=== PATIENT | male | born 1970 | race Caucasian/White ===

== ENCOUNTER 2017-02-11 19:15 | Emergency (ER) | payer OTHER ==
[2017-02-11] MEDS ORDERED: DOXYcycline CAP(*) 100 MG PO ONE (20:40)
--- NOTE | 2017-02-11 20:53 | ED ---
Bite Injury/Animal - HPI Summary HPI Summary: 47M presents with tick bite on left shoulder. He has history of chronic lyme and got the body but did not get the head of the tick. he is not allergic to doxy. some irritation around bite. no fever. tick removed a couple hours ago. the tick was engorged. - History of Current Complaint Chief Complaint: EDRashSkinAbscess Stated Complaint: TICK ON LEFT SHOULDER BLADE Time Seen by Provider: 02/11/17 20:40 Pain Intensity: 2 - Allergies/Home Medications Allergies/Adverse Reactions: Allergies Allergy/AdvReac Type Severity Reaction Status Date / Time No Known Allergies Allergy Verified 08/24/16 11:44 PMH/Surg Hx/FS Hx/Imm Hx Endocrine/Hematology History: Denies: Hx Diabetes, Hx Systemic Lupus Erythematosus, Hx Thyroid Disease Cardiovascular History: Denies: Hx Congestive Heart Failure, Hx Hypertension, Hx Pacemaker/ICD, Other Cardiovascular Problems/Disorders Respiratory History: Reports: Hx Asthma, Other Respiratory Problems/Disorders - recurrernt sinus infections Denies: Hx Chronic Obstructive Pulmonary Disease (COPD) GI History: Reports: Hx Gall Bladder Disease, Other GI Disorders - GALLBLADDER DISEASE, stomach "nerve pain issue" Denies: Hx Ulcer History: Reports: Hx Kidney Stones Denies: Hx Dialysis, Hx Renal Disease Musculoskeletal History: Reports: Other Musculoskeletal History - Right hand surgery Denies: Hx Rheumatoid Arthritis Sensory History: Denies: Hx Contacts or Glasses, Hx Hearing Aid Opthamlomology History: Denies: Hx Contacts or Glasses Neurological History: Reports: Hx Headaches, Hx Migraine, Other Neuro Impairments/Disorders - migranes Psychiatric History: Reports: Hx Depression Denies: Hx Panic Disorder - Cancer History Cancer Type, 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 CARDIAC CATH - NO STENTS. ABDOMINAL NERVE REPAIR SURGERY at [facility] Hx Anesthesia Reactions: No - Immunization History Date of Tetanus Vaccine: UTD Date of Influenza Vaccine: 2012 Immunizations Up to Date: Yes Infectious Disease History: No Infectious Disease History: Reports: History Other Infectious Disease - LYME DISEASE Denies: Hx Hepatitis, Hx Human Immunodeficiency Virus (HIV), Traveled Outside the [place] in Last 30 Days - Family History Known Family History: Positive: Hypertension - Social History Alcohol Use: Occasionally Substance Use Type: Reports: Marijuana Substance Use Comment - Amount & Last Used: daily Smoking Status (MU): Light Every Day Tobacco Smoker Amount Used/How Often: 1/2 PPD Review of Systems Negative: Fever Negative: Chest Pain Negative: Shortness Of Breath Positive: Other - tick bite left shoulder All Other Systems Reviewed And Are Negative: Yes Physical Exam Triage Information Reviewed: Yes Vital Signs On Initial Exam: Initial Vitals Temp Pulse Resp BP Pulse Ox 98.1 F 79 14 167/100 97 02/11/17 19:21 02/11/17 19:21 02/11/17 19:21 02/11/17 19:21 02/11/17 19:21 Vital Signs Reviewed: Yes Appearance: Positive: Well-Appearing Skin: Positive: Warm, Dry, Other - tick head with 2cm surrounding erythema without warmth around area on left shoulder Head/Face: Positive: Normal Head/Face Inspection Eyes: Positive: Normal, Conjunctiva Clear Respiratory/Lung Sounds: Positive: Clear to Auscultation, Breath Sounds Present Cardiovascular: Positive: Normal, RRR Musculoskeletal: Positive: Normal Neurological: Positive: Normal Psychiatric: Positive: Normal - Farrell Coma Scale Coma Scale Total: 15 Diagnostics - Vital Signs Vital Signs Temp Pulse Resp BP Pulse Ox 02/11/17 19:21 98.1 F 79 14 167/100 97 - Laboratory Lab Statement: Any lab studies that have been ordered have been reviewed, and results considered in the medical decision making process. Bite Injury Course/Dx - Course Course Of Treatment: 47M presents with tick bite on left shoulder. He has history of chronic lyme and got the body but did not get the head of the tick. he is not allergic to doxy. some irritation around bite. no fever. tick removed a couple hours ago. the tick was engorged. nurse Gilmer got tick out with needle. gave dose of doxy. patient understand and agrees with plan. - Diagnoses Differential Diagnosis/HQI/PQRI: Positive: Other - tick, lyme Provider Diagnosis: Tick bite Discharge - Discharge Plan Condition: Good Disposition: HOME Patient Education Materials: Tick Bite (ED) Referrals: Roberto Jeffers MD [Primary Care Provider] - Additional Instructions: You have been prophylactically treated for Lyme disease Return to ED if develop any rash or signs of infection
[2017-02-11 21:20] VITALS: BP 151/89
== END 2017-02-11 21:20 | disposition home or self-care (01) ==
LOC: ED 19:15
DX: S40.262A Insect bite (nonvenomous) of left shoulder, initial encounter (principal); W57.XXXA Bitten or stung by nonvenomous insect and other nonvenomous arthropods, initial encounter; Y92.9 Unspecified place or not applicable; F32.9 Major depressive disorder, single episode, unspecified; F17.210 Nicotine dependence, cigarettes, uncomplicated
CPT/HCPCS: 99281; A9270-GY

== ENCOUNTER 2019-12-10 13:56 | Observation (INO) ==
[2019-12-10] MEDS ORDERED: NS 0.9% 1000 ml BAG 1,000 ML IV ONE ×2 (16:30→18:29)
[2019-12-10 16:39] LABS: ABS Basophils 0.1 10^3/ul (0-0.2); ABS Eosinophils 0.3 10^3/ul (0-0.6); ABS Lymphocytes 2.5 10^3/ul (1.0-4.8); ABS Monocytes 0.6 10^3/ul (0-0.8); ABS Neutrophils 6.8 10^3/ul (1.5-7.7); Hematocrit 43 % (42-52); Hemoglobin 14.8 g/dL (14.0-18.0); Lymphocyte % 23.8 %; Mean Corpuscular HGB Conc 34 g/dL (31-36); Mean Corpuscular Hemoglobin 32 pg (27-31); Mean Corpuscular Volume 95 fL (80-94); Mean Platelet Volume 7.4 fL (7.4-10.4); Platelet Count 347 10^3/uL (150-450); Red Blood Count 4.56 10^6 /uL (4.18-5.48); Red Cell Distribution Width 15 % (10-15); White Blood Count 10.3 10^3/uL (3.5-10.8)
[2019-12-10 16:59] LABS: Albumin 4.7 g/dL (3.2-5.2); Albumin/Globulin Ratio 1.5 (1-3); Calcium 9.7 mg/dL (8.6-10.3); EGFR African American 96.1 (>60); EGFR Non-African American 79.4 (>60); Globulin 3.1 g/dL (2-4); Potassium 4.5 mmol/L (3.5-5.0); Total Bilirubin 0.7 mg/dL (0.2-1.0); Total Protein 7.8 g/dL (6.4-8.9)
[2019-12-10 17:00] LABS: INR 1.14 (0.82-1.09)
[2019-12-10] MEDS ORDERED: Ondansetron 4 mg VIAL 2 MG/ML 2 ml VIAL IV ONE (17:20)
[2019-12-10] MEDS ORDERED: Iohexol 300 (CONTRAST) 10 ML SDV IV ONE (17:31)
[2019-12-10] MEDS ORDERED: metroNIDAZOLE IV 500 MG/100ML 500 MG/100 ML BAG IVPB ONE (18:29)
[2019-12-10] MEDS ORDERED: Ciprofloxacin 400mg IVPREMIX 400 MG/200 ML BAG IVPB ONE (18:29)
[2019-12-10 19:56] LABS: C Reactive Protein 11.19 mg/L (<8.01)
[2019-12-10 19:58] LABS: Erythrocyte Sed Rate 5 mm/Hr (0-14)
[2019-12-10] MEDS ORDERED: NS 0.9% 1000 ml BAG 1,000 ML IV SCH (20:00)
[2019-12-10] MEDS ORDERED: Enoxaparin 40 MG/0.4 ML SYR SUBCUT SCH (20:00)
[2019-12-10] MEDS ORDERED: oxyCODONE 5 mg/5 ml ORAL.SOLN UDC PO ONE (20:04)
[2019-12-10] MEDS ORDERED: Nicotine Lozenge mini 2 MG LOZNG.MINI MT PRN (20:48)
[2019-12-10] MEDS: Nicotine PATCH 21 MG/24 HR PATCH TRANSDERM SCH (20:57)
[2019-12-10] MEDS: Ondansetron 4 mg VIAL 2 MG/ML 2 ml VIAL IV PRN (22:48)
[2019-12-10] MEDS: oxyCODONE 5 mg/5 ml ORAL.SOLN UDC PO PRN (22:55)
[2019-12-11] MEDS: oxyCODONE 5 mg/5 ml ORAL.SOLN UDC PO PRN (04:59)
[2019-12-11] MEDS ORDERED: metroNIDAZOLE IV 500 MG/100ML 500 MG/100 ML BAG IVPB SCH (05:00)
[2019-12-11] MEDS: Ondansetron 4 mg VIAL 2 MG/ML 2 ml VIAL IV PRN ×2 (05:42→10:32)
[2019-12-11 06:50] LABS: ABS Eosinophils 0.3 10^3/ul (0-0.6); ABS Lymphocytes 1.8 10^3/ul (1.0-4.8); ABS Monocytes 0.5 10^3/ul (0-0.8); ABS Neutrophils 3.8 10^3/ul (1.5-7.7); Eosinophil % 5.4 %; Hematocrit 36 % (42-52); Hemoglobin 12.5 g/dL (14.0-18.0); Lymphocyte % 27.6 %; Mean Corpuscular HGB Conc 35 g/dL (31-36); Mean Corpuscular Hemoglobin 33 pg (27-31); Mean Corpuscular Volume 94 fL (80-94); Mean Platelet Volume 7.1 fL (7.4-10.4); Nucleated Red Blood Cells % 0.1; Platelet Count 263 10^3/uL (150-450); Red Blood Count 3.83 10^6 /uL (4.18-5.48); Red Cell Distribution Width 14 % (10-15); White Blood Count 6.4 10^3/uL (3.5-10.8)
[2019-12-11 07:12] LABS: BUN/Creatinine Ratio 8.5 (8-20); Calcium 8.7 mg/dL (8.6-10.3); EGFR African American 103.2 (>60); EGFR Non-African American 85.3 (>60); Potassium 4.3 mmol/L (3.5-5.0)
[2019-12-11] MEDS: Nicotine PATCH 21 MG/24 HR PATCH TRANSDERM SCH (07:27)
[2019-12-11 07:42] VITALS: BP 122/77
[2019-12-11] MEDS ORDERED: Nicotine PATCH 21 MG/24 HR PATCH TRANSDERM SCH (08:00)
[2019-12-11] MEDS ORDERED: Ciprofloxacin 400mg IVPREMIX 400 MG/200 ML BAG IVPB SCH (08:00)
== END 2019-12-11 11:40 | disposition home or self-care (01) ==
LOC: ED 13:56 → MED 13:56
PROVIDERS: ADMIT Pediatrics; ATTEND Student in an Organized Health Care Education/Training Program

== ENCOUNTER 2022-08-26 06:21 | Inpatient (IN) ==
[2022-08-26] MEDS ORDERED: Ondansetron 4 mg VIAL 2 MG/ML 2 ml VIAL IV ONE ×2 (06:50→09:20)
[2022-08-26] MEDS ORDERED: Morphine 4 MG/ML VIAL (1 ml) IV ONE (06:54)
[2022-08-26 07:00] LABS: ABS Basophils 0.2 10^3/uL (0.0-0.1); ABS Lymphocytes 1.1 10^3/uL (1.0-4.8); ABS Monocytes 0.5 10^3/uL (0.0-1.1); Eosinophil % 0.1 %; Hematocrit 44.1 % (38-53); Hemoglobin 15.2 g/dL (13.2-16.3); Lymphocyte % 5.8 %; Mean Corpuscular Hgb Conc 34.4 g/dL (31-36); Mean Platelet Volume 7.2 fL (7.5-11.2); Platelet Count 333 10^3/uL (150-450); Red Blood Count 4.74 10^6/uL (4.06-5.63); Red Cell Distribution Width 15.5 % (12-17); White Blood Count 18.7 10^3/uL (3.6-10.2)
[2022-08-26 07:39] LABS: Albumin 4.5 g/dL (3.2-5.2); Albumin/Globulin Ratio 1.3 (1-3); Calcium 9.8 mg/dL (8.6-10.3); Creatinine, Serum 1.18 mg/dL (0.67-1.17); Globulin 3.4 g/dL (2-4); Potassium 4.4 mmol/L (3.5-5.0); Total Bilirubin 0.9 mg/dL (0.2-1.0); Total Protein 7.9 g/dL (6.4-8.9); eGFR CKD-EPI 74.2 (>60)
[2022-08-26] MEDS ORDERED: Iohexol 350 (CONTRAST) 500 ML MDV IV ONE (07:45)
[2022-08-26] MEDS ORDERED: HYDROmorphone 1 MG/1 ML SYRINGE IV SLOW PU ONE ×4 (08:01→20:22)
[2022-08-26] MEDS ORDERED: Lactated Ringers 1000 ml BAG 1,000 ML IV ONE (09:09)
[2022-08-26] MEDS ORDERED: metroNIDAZOLE IV 500 MG/100ML 500 MG/100 ML BAG IVPB ONE (09:11)
[2022-08-26] MEDS ORDERED: Ciprofloxacin 400mg IVPREMIX 400 MG/200 ML BAG IVPB ONE (09:11)
[2022-08-26 09:30] LABS: Activated Partial Thrombo Time 30.7 seconds (26.0-38.0); INR 1.19 (0.88-1.18)
[2022-08-26] MEDS ORDERED: Prochlorperazine 5 mg/ml 2 ml VIAL (10 mg) IV ONE (11:47)
[2022-08-26] MEDS ORDERED: Al Hydrox/Mg Hydrox/Simet LIQ 30 ML UDC PO PRN (13:01)
[2022-08-26] MEDS ORDERED: Lactated Ringers 1000 ml BAG 1,000 ML IV SCH (15:00)
[2022-08-26] MEDS ORDERED: Naloxone Nasal Spray 4 MG/0.1 ML NASAL.SPR INTRANASAL PRN (15:22)
[2022-08-26] MEDS ORDERED: LORazepam ORAL LIQ 2 MG/ML BULK BOTTLE PO PRN (15:22)
[2022-08-26] MEDS ORDERED: Albuterol HFA INHALER 8 gm MDI INH PRN (15:22)
[2022-08-26] MEDS ORDERED: oxyCODONE *Concentrate* ORALSYR 20 MG/ML PO PRN (15:22)
[2022-08-26] MEDS ORDERED: oxyCODONE/Acetamin 5/325 mg TAB PO PRN (15:22)
[2022-08-26] MEDS: Ondansetron 4 mg VIAL 2 MG/ML 2 ml VIAL IV PRN ×2 (15:37→23:25)
[2022-08-26] MEDS: oxyCODONE/Acetamin 5/325 mg TAB PO PRN (16:16)
[2022-08-26 16:43] LABS: Hematocrit 41.9 % (38-53); Hemoglobin 14.1 g/dL (13.2-16.3)
[2022-08-26] MEDS ORDERED: oxyCODONE 5 mg/5 ml ORAL.SOLN UDC PO PRN (17:41)
[2022-08-26] MEDS ORDERED: fentaNYL 100 mcg/2 ml 50 MCG/ML VIAL ONE (18:16)
[2022-08-26] MEDS ORDERED: Midazolam 10 mg/10 ml VIAL 1 mg/ml 10 ml VIAL (10 mg) ONE (18:16)
[2022-08-26 18:33] LABS: C Reactive Protein 22.18 mg/L (<8.01)
[2022-08-26] MEDS ORDERED: metroNIDAZOLE IV 500 MG/100ML 500 MG/100 ML BAG IVPB SCH (19:30)
[2022-08-26] MEDS: metroNIDAZOLE IV 500 MG/100ML 500 MG/100 ML BAG IVPB SCH (20:49)
[2022-08-26] MEDS ORDERED: Ciprofloxacin 400mg IVPREMIX 400 MG/200 ML BAG IVPB SCH (22:00)
[2022-08-26] MEDS: Ciprofloxacin 400mg IVPREMIX 400 MG/200 ML BAG IVPB SCH (22:02)
[2022-08-26] MEDS: oxyCODONE 5 mg/5 ml ORAL.SOLN UDC PO PRN (23:21)
[2022-08-27] MEDS ORDERED: HYDROmorphone 1 MG/1 ML SYRINGE IV SLOW PU ONE (03:23)
[2022-08-27] MEDS: metroNIDAZOLE IV 500 MG/100ML 500 MG/100 ML BAG IVPB SCH ×3 (04:33→21:10)
[2022-08-27] MEDS: oxyCODONE 5 mg/5 ml ORAL.SOLN UDC PO PRN (06:28)
[2022-08-27] MEDS: Ondansetron 4 mg VIAL 2 MG/ML 2 ml VIAL IV PRN ×3 (06:28→16:02)
[2022-08-27 07:22] LABS: Hematocrit 36.8 % (38-53); Hemoglobin 12.3 g/dL (13.2-16.3); Mean Corpuscular Hgb Conc 33.4 g/dL (31-36); Mean Corpuscular Volume 92.8 fL (80-97); Mean Platelet Volume 7.5 fL (7.5-11.2); Platelet Count 278 10^3/uL (150-450); Red Blood Count 3.97 10^6/uL (4.06-5.63); Red Cell Distribution Width 15.5 % (12-17); White Blood Count 23.6 10^3/uL (3.6-10.2)
[2022-08-27 08:12] LABS: ABS Basophils 0.1 10^3/uL (0.0-0.1); ABS Monocytes 1.4 10^3/uL (0.0-1.1); ABS Neutrophils 20.1 10^3/uL (1.5-7.6); Eosinophil % 0.1 %; Lymphocyte % 8.4 %
[2022-08-27] MEDS: oxyCODONE/Acetamin 5/325 mg TAB PO PRN (08:19)
[2022-08-27] MEDS: DULoxetine DR 20 mg CAP PO SCH (08:20)
[2022-08-27 08:56] LABS: Calcium 8.3 mg/dL (8.6-10.3); Creatinine, Serum 0.94 mg/dL (0.67-1.17); Potassium 3.9 mmol/L (3.5-5.0); eGFR CKD-EPI 97.5 (>60)
[2022-08-27] MEDS: Ciprofloxacin 400mg IVPREMIX 400 MG/200 ML BAG IVPB SCH ×2 (10:26→22:44)
[2022-08-27] MEDS ORDERED: Senna TAB 8.6 mg TAB PO PRN (10:49)
[2022-08-27] MEDS ORDERED: Magnesium Hydroxide LIQ 30 ML UDC PO PRN (10:49)
[2022-08-27] MEDS: HYDROmorphone 1 MG/1 ML SYRINGE IV SLOW PU PRN ×3 (11:21→21:11)
[2022-08-27] MEDS: Nicotine PATCH 14 MG/24 HR PATCH TRANSDERM SCH (11:21)
[2022-08-27] MEDS ORDERED: Ondansetron 4 mg VIAL 2 MG/ML 2 ml VIAL IV ONE (12:27)
[2022-08-27] MEDS: Prochlorperazine 5 mg/ml 2 ml VIAL (10 mg) IV PRN ×2 (17:17→23:54)
[2022-08-27 20:29] LABS: Hemoglobin 11.2 g/dL (13.2-16.3)
[2022-08-28] MEDS: HYDROmorphone 1 MG/1 ML SYRINGE IV SLOW PU PRN ×5 (05:22→22:50)
[2022-08-28] MEDS: metroNIDAZOLE IV 500 MG/100ML 500 MG/100 ML BAG IVPB SCH ×3 (05:28→20:59)
[2022-08-28 05:55] LABS: ABS Basophils 0.1 10^3/uL (0.0-0.1); ABS Eosinophils 0.3 10^3/uL (0.0-0.5); ABS Lymphocytes 1.6 10^3/uL (1.0-4.8); ABS Monocytes 0.9 10^3/uL (0.0-1.1); ABS Neutrophils 14.9 10^3/uL (1.5-7.6); Eosinophil % 1.8 %; Hematocrit 33.9 % (38-53); Hemoglobin 11.6 g/dL (13.2-16.3); Lymphocyte % 8.8 %; Mean Corpuscular Hemoglobin 31.7 pg (27-33); Mean Corpuscular Hgb Conc 34.3 g/dL (31-36); Mean Corpuscular Volume 92.4 fL (80-97); Mean Platelet Volume 7.3 fL (7.5-11.2); Platelet Count 219 10^3/uL (150-450); Red Blood Count 3.67 10^6/uL (4.06-5.63); Red Cell Distribution Width 14.9 % (12-17); White Blood Count 17.8 10^3/uL (3.6-10.2)
[2022-08-28] MEDS: Prochlorperazine 5 mg/ml 2 ml VIAL (10 mg) IV PRN ×3 (05:59→20:52)
[2022-08-28 06:11] LABS: Albumin 3.4 g/dL (3.2-5.2); Albumin/Globulin Ratio 1.3 (1-3); Calcium 8.3 mg/dL (8.6-10.3); Creatinine, Serum 0.89 mg/dL (0.67-1.17); Globulin 2.6 g/dL (2-4); Potassium 3.7 mmol/L (3.5-5.0); Total Bilirubin 0.8 mg/dL (0.2-1.0); eGFR CKD-EPI 103.1 (>60)
[2022-08-28] MEDS ORDERED: KCL 20 MEQ/100 ML IVPREMIX 20 MEQ/100 ML BAG IV ONE (07:15)
[2022-08-28] MEDS: Nicotine PATCH 14 MG/24 HR PATCH TRANSDERM SCH (08:13)
[2022-08-28] MEDS: DULoxetine DR 20 mg CAP PO SCH (08:14)
[2022-08-28] MEDS: Ciprofloxacin 400mg IVPREMIX 400 MG/200 ML BAG IVPB SCH ×2 (11:41→22:39)
[2022-08-29] MEDS: metroNIDAZOLE IV 500 MG/100ML 500 MG/100 ML BAG IVPB SCH ×3 (05:30→21:33)
[2022-08-29 06:13] LABS: ABS Basophils 0.1 10^3/uL (0.0-0.1); ABS Eosinophils 0.5 10^3/uL (0.0-0.5); ABS Lymphocytes 1.6 10^3/uL (1.0-4.8); ABS Monocytes 0.9 10^3/uL (0.0-1.1); ABS Neutrophils 11.4 10^3/uL (1.5-7.6); ABS Nucleated RBC 0.01 10^3/ul; Eosinophil % 3.7 %; Hematocrit 32.7 % (38-53); Hemoglobin 11.1 g/dL (13.2-16.3); Lymphocyte % 11.2 %; Mean Corpuscular Hemoglobin 31.7 pg (27-33); Mean Corpuscular Hgb Conc 33.8 g/dL (31-36); Mean Corpuscular Volume 93.7 fL (80-97); Mean Platelet Volume 7.6 fL (7.5-11.2); Nucleated Red Blood Cells % 0.1 /100 WBC (0.0-0.4); Platelet Count 206 10^3/uL (150-450); Red Blood Count 3.49 10^6/uL (4.06-5.63); Red Cell Distribution Width 14.6 % (12-17); White Blood Count 14.6 10^3/uL (3.6-10.2)
[2022-08-29 06:32] LABS: Calcium 7.9 mg/dL (8.6-10.3); Creatinine, Serum 0.87 mg/dL (0.67-1.17); Potassium 3.7 mmol/L (3.5-5.0); eGFR CKD-EPI 103.8 (>60)
[2022-08-29] MEDS: HYDROmorphone 1 MG/1 ML SYRINGE IV SLOW PU PRN ×4 (07:26→21:42)
[2022-08-29] MEDS: Prochlorperazine 5 mg/ml 2 ml VIAL (10 mg) IV PRN ×3 (07:26→21:29)
[2022-08-29] MEDS: DULoxetine DR 20 mg CAP PO SCH (07:27)
[2022-08-29] MEDS: Nicotine PATCH 14 MG/24 HR PATCH TRANSDERM SCH (07:27)
[2022-08-29] MEDS ORDERED: KCL 20 MEQ/100 ML IVPREMIX 20 MEQ/100 ML BAG IV ONE (07:46)
[2022-08-29 08:43] LABS: TSH Ultra Thyroid Stim Horm 7.6 mcIU/mL (0.34-5.60)
[2022-08-29 08:46] LABS: Ferritin 190.9 ng/mL (24-336)
[2022-08-29] MEDS ORDERED: Acetaminophen IV 1 GM/100ML 1,000 MG/100 ML BAG IV ONE (09:10)
[2022-08-29] MEDS: Ciprofloxacin 400mg IVPREMIX 400 MG/200 ML BAG IVPB SCH ×2 (10:22→22:47)
[2022-08-29 12:07] LABS: Protein C Activity 95 % (70 - 150)
[2022-08-29 13:40] LABS: Protein S Activity, P 106 % (65 - 160)
[2022-08-29] MEDS: Acetaminophen IV 1 GM/100ML 1,000 MG/100 ML BAG IV SCH (16:37)
[2022-08-30] MEDS: Acetaminophen IV 1 GM/100ML 1,000 MG/100 ML BAG IV SCH ×2 (00:01→11:35)
[2022-08-30] MEDS: Prochlorperazine 5 mg/ml 2 ml VIAL (10 mg) IV PRN ×3 (04:38→20:41)
[2022-08-30] MEDS: HYDROmorphone 1 MG/1 ML SYRINGE IV SLOW PU PRN ×5 (04:38→22:32)
[2022-08-30] MEDS: metroNIDAZOLE IV 500 MG/100ML 500 MG/100 ML BAG IVPB SCH ×3 (04:41→20:45)
[2022-08-30 06:16] LABS: ABS Basophils 0.1 10^3/uL (0.0-0.1); ABS Eosinophils 0.6 10^3/uL (0.0-0.5); ABS Lymphocytes 1.4 10^3/uL (1.0-4.8); ABS Monocytes 0.9 10^3/uL (0.0-1.1); ABS Neutrophils 10.3 10^3/uL (1.5-7.6); ABS Nucleated RBC 0.01 10^3/ul; Eosinophil % 4.5 %; Hematocrit 33.6 % (38-53); Hemoglobin 11.3 g/dL (13.2-16.3); Lymphocyte % 10.2 %; Mean Corpuscular Hemoglobin 31.4 pg (27-33); Mean Corpuscular Hgb Conc 33.7 g/dL (31-36); Mean Corpuscular Volume 93.1 fL (80-97); Mean Platelet Volume 7.8 fL (7.5-11.2); Nucleated Red Blood Cells % 0.1 /100 WBC (0.0-0.4); Platelet Count 254 10^3/uL (150-450); Red Blood Count 3.61 10^6/uL (4.06-5.63); Red Cell Distribution Width 14.4 % (12-17); White Blood Count 13.2 10^3/uL (3.6-10.2)
[2022-08-30 06:33] LABS: Calcium 8.1 mg/dL (8.6-10.3); Creatinine, Serum 0.82 mg/dL (0.67-1.17); Potassium 3.9 mmol/L (3.5-5.0); eGFR CKD-EPI 105.7 (>60)
[2022-08-30 08:03] LABS: C Reactive Protein 134.31 mg/L (<8.01); Magnesium 2.1 mg/dL (1.9-2.7)
[2022-08-30] MEDS: DULoxetine DR 20 mg CAP PO SCH (08:36)
[2022-08-30] MEDS: Nicotine PATCH 14 MG/24 HR PATCH TRANSDERM SCH (08:37)
[2022-08-30] MEDS ORDERED: Iohexol 350 (CONTRAST) 500 ML MDV IV ONE (10:01)
[2022-08-30] MEDS: Ciprofloxacin 400mg IVPREMIX 400 MG/200 ML BAG IVPB SCH ×3 (10:20→22:25)
[2022-08-30] MEDS ORDERED: Ondansetron 4 mg VIAL 2 MG/ML 2 ml VIAL IV ONE (14:41)
[2022-08-31] MEDS: HYDROmorphone 1 MG/1 ML SYRINGE IV SLOW PU PRN ×4 (05:33→20:20)
[2022-08-31] MEDS: Prochlorperazine 5 mg/ml 2 ml VIAL (10 mg) IV PRN ×3 (05:36→21:22)
[2022-08-31] MEDS: metroNIDAZOLE IV 500 MG/100ML 500 MG/100 ML BAG IVPB SCH ×3 (05:43→21:07)
[2022-08-31 05:44] LABS: ABS Basophils 0.1 10^3/uL (0.0-0.1); ABS Eosinophils 0.6 10^3/uL (0.0-0.5); ABS Monocytes 1.2 10^3/uL (0.0-1.1); ABS Neutrophils 8.9 10^3/uL (1.5-7.6); ABS Nucleated RBC 0.02 10^3/ul; Hematocrit 31.2 % (38-53); Hemoglobin 10.7 g/dL (13.2-16.3); Lymphocyte % 15.8 %; Mean Corpuscular Hemoglobin 31.9 pg (27-33); Mean Corpuscular Hgb Conc 34.4 g/dL (31-36); Mean Corpuscular Volume 92.6 fL (80-97); Mean Platelet Volume 7.4 fL (7.5-11.2); Nucleated Red Blood Cells % 0.2 /100 WBC (0.0-0.4); Platelet Count 267 10^3/uL (150-450); Red Blood Count 3.37 10^6/uL (4.06-5.63); Red Cell Distribution Width 14.7 % (12-17); White Blood Count 12.9 10^3/uL (3.6-10.2)
[2022-08-31 05:58] LABS: Calcium 7.8 mg/dL (8.6-10.3); Creatinine, Serum 0.87 mg/dL (0.67-1.17); Magnesium 2.1 mg/dL (1.9-2.7); eGFR CKD-EPI 103.8 (>60)
[2022-08-31] MEDS: Nicotine PATCH 14 MG/24 HR PATCH TRANSDERM SCH (07:36)
[2022-08-31] MEDS: DULoxetine DR 20 mg CAP PO SCH (07:37)
[2022-08-31] MEDS: Ciprofloxacin 400mg IVPREMIX 400 MG/200 ML BAG IVPB SCH ×2 (09:31→22:19)
[2022-09-01] MEDS: Prochlorperazine 5 mg/ml 2 ml VIAL (10 mg) IV PRN ×2 (02:54→08:58)
[2022-09-01] MEDS: HYDROmorphone 1 MG/1 ML SYRINGE IV SLOW PU PRN ×2 (02:56→08:58)
[2022-09-01] MEDS: metroNIDAZOLE IV 500 MG/100ML 500 MG/100 ML BAG IVPB SCH (04:52)
[2022-09-01] MEDS: Ciprofloxacin 400mg IVPREMIX 400 MG/200 ML BAG IVPB SCH (08:59)
[2022-09-01] MEDS: DULoxetine DR 20 mg CAP PO SCH (09:01)
[2022-09-01] MEDS: Nicotine PATCH 14 MG/24 HR PATCH TRANSDERM SCH (09:01)
[2022-09-01 10:23] VITALS: BP 124/82
[2022-09-01 11:56] LABS: Factor V Leiden Mutation Negative (Negative); Prothrombin 20210 Mutation Negative (Negative)
== END 2022-09-01 11:57 | disposition home or self-care (01) | DRG 394 ==
LOC: ED 06:21 → EDHOLD 06:21 → SUATTDRO 13:01 → EDHOLD 15:50 → SSU 16:06 → SUATTDRO 08-28 19:14
PROVIDERS: ADMIT Hospitalist; ATTEND Internal Medicine

== ENCOUNTER 2024-01-22 17:24 | Observation (INO) ==
[2024-01-22 17:57] LABS: ABS Basophils 0.1 10^3/uL (0.0-0.1); ABS Eosinophils 0.5 10^3/uL (0.0-0.5); ABS Lymphocytes 2.2 10^3/uL (1.0-4.8); ABS Monocytes 0.7 10^3/uL (0.0-1.1); ABS Neutrophils 2.9 10^3/uL (1.5-7.6); ABS Nucleated RBC 0.01 10^3/ul; Eosinophil % 8.4 %; Hematocrit 36.1 % (38-53); Lymphocyte % 34.2 %; Mean Corpuscular Hemoglobin 30.1 pg (27-33); Mean Corpuscular Hgb Conc 33.2 g/dL (31-36); Mean Corpuscular Volume 90.7 fL (80-97); Mean Platelet Volume 7.2 fL (7.5-11.2); Nucleated Red Blood Cells % 0.2 %/100WBC (0.0-0.8); Platelet Count 330 10^3/uL (150-450); Red Blood Count 3.98 10^6/uL (4.06-5.63); Red Cell Distribution Width 15.3 % (12-17); White Blood Count 6.4 10^3/uL (3.6-10.2)
[2024-01-22 18:03] LABS: INR 1.34 (0.85-1.14)
[2024-01-22 18:52] LABS: Albumin 4.2 g/dL (3.2-5.2); Albumin/Globulin Ratio 1.3 (1-3); Calcium 9.3 mg/dL (8.6-10.3); Creatinine, Serum 1.01 mg/dL (0.67-1.17); Globulin 3.2 g/dL (2-4); Potassium 4.7 mmol/L (3.5-5.0); Total Bilirubin 0.3 mg/dL (0.2-1.0); Total Protein 7.4 g/dL (6.4-8.9); eGFR CKD-EPI 88.9 (>60)
[2024-01-22 19:32] LABS: High Sensitivity Troponin 1 Hr 7 pg/mL (<20)
[2024-01-22] MEDS: Iohexol 350 (CONTRAST) 500 ML MDV IV ONE (20:25)
[2024-01-22] MEDS ORDERED: oxyCODONE SR 15 mg TAB PO ONE (22:00)
[2024-01-22] MEDS: oxyCODONE SR 10 mg TAB PO ONE (22:29)
[2024-01-23] MEDS ORDERED: Naloxone Nasal Spray 4 MG/0.1 ML NASAL.SPR INTRANASAL PRN (00:13)
[2024-01-23] MEDS: Ondansetron ODT 4 mg TAB 4 MG TAB PO PRN ×2 (02:57→18:30)
[2024-01-23 05:40] LABS: ABS Basophils 0.1 10^3/uL (0.0-0.1); ABS Eosinophils 0.5 10^3/uL (0.0-0.5); ABS Lymphocytes 2.1 10^3/uL (1.0-4.8); ABS Monocytes 0.7 10^3/uL (0.0-1.1); ABS Neutrophils 2.4 10^3/uL (1.5-7.6); Hematocrit 33.2 % (38-53); Hemoglobin 10.8 g/dL (13.2-16.3); Mean Corpuscular Hemoglobin 29.4 pg (27-33); Mean Corpuscular Hgb Conc 32.5 g/dL (31-36); Mean Corpuscular Volume 90.3 fL (80-97); Mean Platelet Volume 6.7 fL (7.5-11.2); Platelet Count 293 10^3/uL (150-450); Red Blood Count 3.68 10^6/uL (4.06-5.63); Red Cell Distribution Width 15.3 % (12-17); White Blood Count 5.8 10^3/uL (3.6-10.2)
[2024-01-23] MEDS: oxyCODONE SR 10 mg TAB PO SCH (06:23)
[2024-01-23 06:28] LABS: Calcium 8.8 mg/dL (8.6-10.3); Creatinine, Serum 0.95 mg/dL (0.67-1.17); HDL Cholesterol 27.7 mg/dL; Potassium 4.4 mmol/L (3.5-5.0); eGFR CKD-EPI 95.7 (>60)
[2024-01-23 06:50] LABS: Ferritin 24.2 ng/mL (24-336)
[2024-01-23 06:53] LABS: Folate 5.26 ng/mL (5.90-24.80)
[2024-01-23] MEDS ORDERED: Regadenoson 0.4 MG/5 ML SYRINGE ONE (09:55)
[2024-01-23] MEDS: DULoxetine DR 60 mg CAP PO SCH (11:43)
[2024-01-23] MEDS ORDERED: Heparin 5000 UNITS/ML 1 mL VIAL IV SCH (15:00)
[2024-01-23] MEDS ORDERED: Heparin DRIP 25,000 UNITS BAG 25,000 UNITS/250 ML BAG IV SCH (18:00)
[2024-01-23] MEDS: Nicotine PATCH 21 MG/24 HR PATCH TRANSDERM SCH (18:25)
[2024-01-24 06:47] LABS: ABS Basophils 0.2 10^3/uL (0.0-0.1); ABS Eosinophils 0.5 10^3/uL (0.0-0.5); ABS Monocytes 0.6 10^3/uL (0.0-1.1); ABS Neutrophils 2.3 10^3/uL (1.5-7.6); Eosinophil % 8.6 %; Hematocrit 32.3 % (38-53); Hemoglobin 10.8 g/dL (13.2-16.3); Lymphocyte % 36.4 %; Mean Corpuscular Hemoglobin 30.2 pg (27-33); Mean Corpuscular Hgb Conc 33.6 g/dL (31-36); Mean Corpuscular Volume 89.9 fL (80-97); Mean Platelet Volume 7.2 fL (7.5-11.2); Platelet Count 271 10^3/uL (150-450); Red Blood Count 3.59 10^6/uL (4.06-5.63); Red Cell Distribution Width 15.3 % (12-17); White Blood Count 5.6 10^3/uL (3.6-10.2)
[2024-01-24 07:31] LABS: Calcium 8.8 mg/dL (8.6-10.3); Creatinine, Serum 0.86 mg/dL (0.67-1.17); Phosphorus 3.7 mg/dL (2.5-5.0); Potassium 4.6 mmol/L (3.5-5.0); eGFR CKD-EPI 103.5 (>60)
[2024-01-24 14:19] VITALS: BP 124/86
== END 2024-01-24 15:07 | disposition home or self-care (01) ==
LOC: ED 17:24 → EDHOLD 17:24 → SUATTDRO 01-23 00:03 → MEDTELE 01-23 22:27
PROVIDERS: ADMIT Student in an Organized Health Care Education/Training Program; ATTEND Internal Medicine